=== PATIENT | male | born 1960 | race Caucasian/White ===

== ENCOUNTER 2017-02-23 21:41 | Emergency (ER) | payer BC ==
[2017-02-23 22:03] VITALS: BP 123/78
--- NOTE | 2017-02-23 23:37 | RAD ---
Right leg venous Doppler study: Clinical indications: Right leg and ankle swelling and pain. History of DVT on August 30, 2014 Which included right popliteal vein extending into right posterior tibial and peroneal veins. Findings: Duplex sonography (including elena scale evaluation and color flow and waveform spectral analysis) of the proximal aspect of the greater saphenous vein and proximal aspect of the profunda femoral vein and the entire length of the common femoral and superficial femoral and popliteal veins and the tibioperoneal trunk and the proximal aspect of the posterior tibial and peroneal veins of the right leg was performed. The distal right popliteal vein is not completely compressible due to nonocclusive thrombosis which extends into posterior tibial veins. The peroneal veins are not well visualized. This is consistent with old partial thrombosis. The other veins are patent and compressible. Impression: Partial nonocclusive thrombosis of the distal right popliteal vein extending into the posterior tibial veins. This most likely is old given the patient's previous history. Certainly, acute thrombosis cannot be excluded in these veins. If symptoms progress, a follow-up duplex venous study may be helpful to exclude any proximal progression. A 3.7 cm Parada cyst is seen. Lymph nodes are identified within the right groin. Electronically signed by: Lavell Bedolla MD (02/23/2017 11:34 PM) [facility]
--- NOTE | 2017-02-24 00:06 | PHYS DOC ---
Past Medical History Past Medical History: DVT Past Surgical History: Other Additional Past Surgical Histo: L knee, eye surgery,CATARACTS REMOVED BILAT EYE Additional Information: SMOKES 3 CIGARETTES A DAY Alcohol Use: Heavy Additional Information: DRINKS 6 PACK BEER DAILY Drug Use: None Adult General Chief Complaint Chief Complaint: LOWER EXTREMITY SWELLING HPI HPI Patient is a 56 year old male who presents with right leg swelling. The patient reports 3 day history of swelling in right ankle & calf without history of trauma. minimal pain. Denies numbness/weakness. Denies fevers/chills, chest pain, shortness of breath. History of previous DVT in 2014, did not complete anticoagulation regimen with xarelto, no follow up. Not provoked at that time. Today no recent surgery, travel. PCP is Dr. Hernandes. Review of Systems Review of Systems Constitutional: Denies fever or chills HENT: Denies nasal congestion or sore throat Respiratory: Denies cough or shortness of breath Cardiovascular: Denies chest pain GI: Denies abdominal pain, nausea, vomiting Musculoskeletal: Reports right lower extremity swelling Integument: Denies rash Neurologic: Denies headache, focal weakness or sensory changes Allergies Allergies Allergies Coded Allergies Type Severity Reaction Last Updated Verified No Known Drug Allergies 08/30/14 No Physical Exam Physical Exam Constitutional: Well developed, well nourished, no acute distress, non-toxic appearance. HENT: Normocephalic, atraumatic, bilateral external ears normal, oropharynx moist, nose normal. Eyes: conjunctiva normal, no discharge. Neck: supple, no stridor. Cardiovascular: RRR, no murmurs, no edema. Lungs & Thorax: LCTAB, no wheezing, no respiratory distress. Abdomen: nondistended. Skin: Warm, dry, no erythema, no rash. Back: No tenderness. Extremities: RLE 1+ nonpitting edema to lower leg, no calf tenderness, dp/pt 2+ , sensation intact to foot, compartments soft, no focal ankle or knee tenderness Neurologic: Alert and oriented X 3, no focal deficits noted. Psychologic: Affect normal, judgement normal, mood normal. Current Patient Data Vital Signs Vital Signs Date Time Temp Pulse Resp B/P (MAP) Pulse Ox O2 Delivery O2 Flow Rate FiO2 02/23/17 22:03 97.8 72 16 123/78 (93) 95 Room Air 97.8 EKG EKG [] Radiology/Procedures Radiology/Procedures PROCEDURE: VENOUS LOWER EXTREMITY RIGHT Right leg venous Doppler study: Clinical indications: Right leg and ankle swelling and pain. History of DVT on August 30, 2014 Which included right popliteal vein extending into right posterior tibial and peroneal veins. Findings: Duplex sonography (including elena scale evaluation and color flow and waveform spectral analysis) of the proximal aspect of the greater saphenous vein and proximal aspect of the profunda femoral vein and the entire length of the common femoral and superficial femoral and popliteal veins and the tibioperoneal trunk and the proximal aspect of the posterior tibial and peroneal veins of the right leg was performed. The distal right popliteal vein is not completely compressible due to nonocclusive thrombosis which extends into posterior tibial veins. The peroneal veins are not well visualized. This is consistent with old partial thrombosis. The other veins are patent and compressible. Impression: Partial nonocclusive thrombosis of the distal right popliteal vein extending into the posterior tibial veins. This most likely is old given the patient's previous history. Certainly, acute thrombosis cannot be excluded in these veins. If symptoms progress, a follow-up duplex venous study may be helpful to exclude any proximal progression. A 3.7 cm Parada cyst is seen. Lymph nodes are identified within the right groin. Electronically signed by: Samantha Bedolla MD (02/23/2017 11:34 PM) [facility] DICTATED and SIGNED BY: SAMANTHA BEDOLLA MD DATE: 02/23/17 2328[] Course & Med Decision Making Course & Med Decision Making Pertinent Labs and Imaging studies reviewed. (See chart for details) The patient presents with calf swelling. Obtained US which shows nonocclusive thrombus, interpreted by radiologist as "most likely" chronic. However patient does have new symptoms, & unable to rule out acute thrombus at this time. Patient does not want to be admitted to the hospital. Discussed with Dr. Hernandes, he can see the patient anytime this week if he calls for an appointment. Because patient has history of poor compliance, does not want to initiate anticoagulation at this time in the ED, patient can take aspirin daily if not already taking. Can have repeat US done at time of follow up. Patient agrees with plan, recommend elevation, call for appointment in 2 days. Come back for worsening pain/swelling, chest pain, shortness of breath, any otherwise worsening condition. Discharged home in stable condition. [] Dragon Disclaimer Dragon Disclaimer This electronic medical record was generated, in whole or in part, using a voice recognition dictation system. Departure Departure Impression: Primary Impression: Non-occlusive thrombus Disposition: HOME, SELF-CARE Condition: STABLE Referrals: TANK HERNANDES MD (PCP) Patient Instructions: Deep Vein Thrombosis Additional Instructions: You were seen in the emergency department today for leg swelling. The ultrasound showed blood clot which is likely old. There is still a possibility that this could be a new blood clot. Follow-up with Dr. Hernandes in the primary care clinic in 2 days for likely repeat ultrasound. In the meantime you can take aspirin 81 mg daily. Return to the emergency department for severe shortness of breath, chest pain, any otherwise worsening condition. MARIANNE ARAUJO MD Feb 24, 2017 00:06
== END 2017-02-24 00:18 | disposition home or self-care (01) ==
LOC: ER 21:41
DX: I82.431 Acute embolism and thrombosis of right popliteal vein (principal); F17.210 Nicotine dependence, cigarettes, uncomplicated; F10.10 Alcohol abuse, uncomplicated; Z86.718 Personal history of other venous thrombosis and embolism
CPT/HCPCS: 93971; 99284-25

== ENCOUNTER → 2017-03-04 | Outpatient (CLI) | payer BC ==
[2017-02-23 22:03] VITALS: BP 123/78
--- NOTE | 2017-03-04 16:50 | RAD ---
CT chest without contrast 03/04/2017. Clinical indication: Lung carcinoma screening. 30+ years smoker. Comparison: CT chest 08/05/2007. Technique: CT helical acquisition of the chest without contrast was obtained according to the standard protocol. Coronal and sagittal reformations were obtained. PQRS Compliance Statement: One or more of the following individualized dose reduction techniques were utilized for this examination: 1. Automated exposure control 2. Adjustment of the mA and/or kV according to patient size 3. Use of iterative reconstruction technique Findings: Chest: No suspicious noncalcified pulmonary nodule. No pleural effusion or pneumothorax. Heart size is normal without significant pericardial effusion. Coronary artery calcifications. Thoracic aorta is normal in caliber with mild scattered calcified atheromatous disease. No axillary, mediastinal or obvious hilar lymphadenopathy, though evaluation is limited in the absence of intravenous contrast. Limited images of the upper abdomen: Moderate hepatic steatosis. Impression: 1. No suspicious noncalcified pulmonary nodule. 2. Coronary artery calcifications. 3. Hepatic steatosis.
== END | disposition home or self-care (01) ==
LOC: CT 08:59
PROVIDERS: ATTEND Family Medicine
DX: Z12.2 Encounter for screening for malignant neoplasm of respiratory organs (principal); I25.10 Atherosclerotic heart disease of native coronary artery without angina pectoris; K76.0 Fatty (change of) liver, not elsewhere classified
CPT/HCPCS: 71250

== ENCOUNTER → 2017-05-19 | Day surgery (SDC) | payer BC ==
[~2017-05-19] MED LIST: ATOR10TA60 PO; FLUO20CA8 PO; HYDROmorphone 2 MG/ML VIAL IV PRN; IV RINGERS,LACTATED 1000ML 1,000 ML IV SCH; LIDOCAINE 1% PF 2 ML VIAL. ID PRN; LIDOCAINE 2% PF Vial for OR 5 ML VIAL. ONE; LISI-334 PO; MORPHINE SULFATE 2 MG/ML DISP.SYRIN. IV PRN; ONDANSETRON PF 4 MG/2 ML VIAL. IV PRN; PROCHLORPERAZINE 10 MG/2 ML VIAL. IV PRN; PROPOFOL 20 ML IV ONE; fentaNYL PF VIAL 100 MCG/2 ML VIAL IV PRN
[2017-05-19 09:21] VITALS: BP 134/89
--- NOTE | 2017-05-19 10:53 | CONS ---
DATE OF CONSULTATION: 05/19/2017 REFERRING PHYSICIAN: Dr. Anton Khalil. HISTORY OF PRESENT ILLNESS: A 56-year-old male whose past medical history is significant for hypertension, hyperlipidemia, seen for a screening colon exam. He has not had previous evaluations. Bowel habits are regular with bowel movements daily, which are formed. FAMILY HISTORY: Unrevealing for colon cancer. There has been no diarrhea or constipation. No melena and/or hematochezia. Weight and appetite are stable. He is otherwise without additional complaints. PAST MEDICAL HISTORY: History of DVT, hyperlipidemia, hypertension, anxiety. ALLERGIES: None. MEDICATIONS: Include atorvastatin 10 mg daily, Prozac 1 daily 20 mg, lisinopril 20 mg daily. FAMILY AND SOCIAL HISTORY: Breast cancer with sibling, myocardial infarction with both parents. He is a current smoker, social drinker. PAST SURGICAL HISTORY: Significant for eye surgery. REVIEW OF SYSTEMS: Per records. PHYSICAL EXAMINATION: GENERAL: Reveals a well-nourished, well-developed male who is alert, conversant, in no acute distress. VITAL SIGNS: Temperature is 98, pulse 71, respirations 18. HEENT: Normocephalic and atraumatic head. Pupils and extraocular muscles not tested. Sclerae are anicteric. NECK: Supple. LUNGS: Clear. CARDIOVASCULAR: Reveals an S1, S2 without S3, S4 or appreciable murmur. ABDOMEN: Reveals a soft abdomen, normal bowel sounds, without appreciable hepatosplenomegaly. EXTREMITIES: Reveals no cyanosis, clubbing or edema. IMPRESSION: Colorectal screening is warranted. Risks, benefits of procedure including risk of perforation have been discussed. The patient is willing to proceed at this time. COSME CASILLAS MD DR: ANANTH/alexandria JOB#: [id number] / [id number] [facility] Records, Medical
--- NOTE | 2017-05-20 15:04 | PATHOLOGY ---
PATHOLOGY REPORT * * * * * * * * FINAL DIAGNOSIS: Colon biopsy, transverse colon polyp: - Tubular adenoma. (JPM:parth; 05/20/2017) COMMENT: There is no high-grade dysplasia or evidence of malignancy. REPORT ELECTRONICALLY SIGNED BY: Evgeny Sweeney M.D. DATE/TIME: 05/20/2017 15:03 * * * * * * * * GROSS PATHOLOGY: Received in formalin labeled "Alex Brock, transverse colon polyp," is a segment of mcdonnell soft tissue measuring 0.3 cm in maximum dimension. The specimen is submitted entirely in cassette A1. (TSD; 05/19/2017) INITIAL CPT CODE(S): A; 06401 Professional services performed by [facility] [address] Technical services performed by [facility] at [address] [place] [address]. SPECIMEN(S) RECEIVED: A.Transverse colon polyp CLINICAL HISTORY: Screening PATIENT: ALEX BROCK /AGE: 1106/14/1960 (Age: 56) PATIENT #: [id number] ALT CASE #: SPECIMEN COLLECTION DATE: 05/19/2017 SPECIMEN RECEIVED DATE: 05/19/2017 [facility] - [id number] [place] [address] - PHONE: [phone] * * * END OF REPORT * * *
== END | disposition home or self-care (01) ==
LOC: ENDOS 07:28
PROVIDERS: ATTEND Internal Medicine Gastroenterology
DX: Z12.11 Encounter for screening for malignant neoplasm of colon (principal); D12.3 Benign neoplasm of transverse colon; K64.0 First degree hemorrhoids; E78.00 Pure hypercholesterolemia, unspecified; I10 Essential (primary) hypertension; M19.91 Primary osteoarthritis, unspecified site; F17.200 Nicotine dependence, unspecified, uncomplicated; Z72.0 Tobacco use
CPT/HCPCS: 45385; 88305; J2704; J2001